=== PATIENT | female | born 1965 | race Caucasian/White ===

== ENCOUNTER 2024-10-26 14:47 | Observation (INO) | payer BC ==
[2024-10-26 17:09] LABS: VENOUS O2 SATURATION 59.7 % (70-80); VENOUS PCO2 47.5 mmHg (38-52); VENOUS PH 7.433 (7.310-7.410)
[2024-10-26 17:10] LABS: ABSOLUTE IMMATURE GRANULOCYTES 0.01 x10^3/uL (0.0-0.031); BASOPHILS # 0.03 x10^3/uL (0.01-0.08); EOSINOPHIL % 1.5 % (0.7-5.8); EOSINOPHILS # 0.09 x10^3/uL (0.04-0.36); HEMATOCRIT 27.4 % (34.1-44.9); HEMOGLOBIN 8.9 g/dL (11.2-15.7); MCHC 32.5 g/dl (32.2-35.5); MONOCYTE # 0.44 x10^3/uL (0.24-0.86); MONOCYTE % 7.2 % (4.7-12.5); PLATELET COUNT 230 x10^3/uL (182-369); RDW 16.4 % (12.3-16.6)
[2024-10-26 17:21] LABS: INR 0.91 (0.83-1.09); PROTHROMBIN TIME (PATIENT) 9.9 SEC (9.7-13.0)
[2024-10-26 17:24] LABS: ACTIVATED PTT 19.2 SECONDS (25.2-36.5)
[2024-10-26 17:33] LABS: POTASSIUM 3.8 mmol/L (3.5-5.1)
[2024-10-26 17:35] LABS: ALBUMIN 2.8 g/dl (3.4-5.0); CALCIUM 8.9 mg/dL (8.5-10.1)
[2024-10-26 17:38] LABS: CREATININE 1.4 mg/dL (0.55-1.3)
[2024-10-26 17:40] LABS: BILIRUBIN,TOTAL 0.4 mg/dL (0.2-1); TOT PROT 6.2 g/dl (6.4-8.2)
[2024-10-26 18:39] LABS: PH,URINE 5.5 (5.0-8.0); URINE APPEARANCE TURBID; URINE BILIRUBIN 1+ (NEGATIVE); URINE COLOR DK YELLOW; URINE GLUCOSE (UA) 1+ (NEGATIVE); URINE KETONE TRACE (NEGATIVE); URINE LEUK ESTERASE TRACE (NEGATIVE); URINE NITRITE NEGATIVE (NEGATIVE); URINE PROTEIN 4+ (NEGATIVE); URINE UROBILINOGEN 0.2 mg/dL (0.2-1.0)
[2024-10-26 20:03] LABS: EPI CELLS 85.5 /uL (0-25.1); URINE RBC 29.7 /uL (0-23.9); URINE WBC 805.5 /uL (0-25.8)
[2024-10-26 20:04] LABS: HYALINE CASTS 3.17 /uL (0-3.1); URINE BACTERIA 119.3 /uL (0-1359)
[2024-10-26] MEDS ORDERED: levETIRAcetam 500 MG/5 ML INJECTION VIAL IVPB ONE (20:51)
[2024-10-26] MEDS: levETIRAcetam 500 MG/5 ML INJECTION VIAL IVPB ONE (20:57)
[2024-10-26] MEDS ORDERED: levETIRAcetam 500 MG/5 ML ORAL SOLUTION (UNIT-DOSE CUPS) GT SCH (22:00)
[2024-10-26] MEDS ORDERED: levETIRAcetam 500 MG/5 ML INJECTION VIAL IVPB SCH (22:00)
[2024-10-26] MEDS ORDERED: traZODone HCL 50 MG TABLET (FP) ONE (22:49)
[2024-10-26] MEDS ORDERED: ATORVASTATIN CA 80 MG TABLET (FP) ONE (22:49)
[2024-10-26] MEDS ORDERED: HEPARIN NA (PORCINE) 5,000 UNITS/ML 1ML VIAL ONE (22:50)
[2024-10-26] MEDS ORDERED: MIDODRINE HCL 5 MG TABLET ONE (22:50)
[2024-10-26] MEDS ORDERED: Lacosamide 50 MG/5 ML ORAL SOLUTION UNIT CUPS ONE (22:50)
[2024-10-26] MEDS: traZODone HCL 50 MG TABLET (FP) PO SCH (23:25)
[2024-10-26] MEDS: HEPARIN NA (PORCINE) 5,000 UNITS/ML 1ML VIAL SQ SCH (23:25)
[2024-10-26] MEDS: ATORVASTATIN CA 80 MG TABLET (FP) GT SCH (23:25)
[2024-10-26] MEDS: Lacosamide 50 MG/5 ML ORAL SOLUTION UNIT CUPS PO SCH (23:25)
[2024-10-26] MEDS: MIDODRINE HCL 5 MG TABLET GT SCH (23:30)
[2024-10-27] MEDS: INSULIN ASPART SLIDING SCALE (NOVOLOG) 1 VIAL SQ SCH (06:19)
[2024-10-27 07:00] LABS: ABSOLUTE IMMATURE GRANULOCYTES 0.02 x10^3/uL (0.0-0.031); BASOPHILS # 0.04 x10^3/uL (0.01-0.08); EOSINOPHIL % 3.3 % (0.7-5.8); EOSINOPHILS # 0.19 x10^3/uL (0.04-0.36); HEMATOCRIT 27.7 % (34.1-44.9); HEMOGLOBIN 8.7 g/dL (11.2-15.7); MCHC 31.4 g/dl (32.2-35.5); MEAN CELL VOLUME 101.5 fl (79.4-94.8); MEAN PLT VOLUME 9.8 fl (9.4-12.3); MONOCYTE # 0.45 x10^3/uL (0.24-0.86); MONOCYTE % 7.8 % (4.7-12.5); PLATELET COUNT 258 x10^3/uL (182-369); RDW 16.4 % (12.3-16.6)
[2024-10-27 07:16] LABS: POTASSIUM 3.2 mmol/L (3.5-5.1)
[2024-10-27 07:21] LABS: ALBUMIN 2.8 g/dl (3.4-5.0); BLOOD UREA NITROGEN 29.5 mg/dL (7-18); CALCIUM 8.7 mg/dL (8.5-10.1)
[2024-10-27 07:24] LABS: CREATININE 1.8 mg/dL (0.55-1.3)
[2024-10-27 07:25] LABS: BILIRUBIN,TOTAL 0.4 mg/dL (0.2-1)
[2024-10-27 07:26] LABS: TOT PROT 5.8 g/dl (6.4-8.2)
[2024-10-27] MEDS: ASPIRIN 325 MG TABLET GT ONE (08:00)
[2024-10-27] MEDS ORDERED: MIDODRINE HCL 2.5 MG TABLET PO PRN (08:26)
[2024-10-27] MEDS: KCL 10 MEQ IVPB 10 MEQ/100 ML INFUS.BAG IVPB SCH (10:45)
[2024-10-27] MEDS: levETIRAcetam 500 MG/5 ML INJECTION VIAL IVPB SCH (10:51)
[2024-10-27] MEDS: clonazePAM 0.5 MG TABLET GT SCH (10:51)
[2024-10-27] MEDS: POTASSIUM CHLORIDE ORAL LIQUID 20 MEQ/15 ML GT ONE (18:59)
[2024-10-28 07:05] LABS: HEMATOCRIT 27.8 % (34.1-44.9); HEMOGLOBIN 8.7 g/dL (11.2-15.7); MCHC 31.3 g/dl (32.2-35.5); MEAN CELL VOLUME 101.8 fl (79.4-94.8); MEAN PLT VOLUME 10.7 fl (9.4-12.3); PLATELET COUNT 256 x10^3/uL (182-369); RDW 16.1 % (12.3-16.6)
[2024-10-28 07:30] LABS: CALCIUM 8.5 mg/dL (8.5-10.1)
[2024-10-28 07:31] LABS: BLOOD UREA NITROGEN 39.4 mg/dL (7-18); MAGNESIUM 2.5 mg/dL (1.8-2.4)
[2024-10-28 07:34] LABS: PHOSPHOROUS 4.1 mg/dL (2.5-4.9)
[2024-10-28] MEDS ORDERED: ACETAMINOPHEN 325 MG TABLET (FP) PO PRN (09:29)
[2024-10-28] MEDS: VITAMIN B COMP W-C 1 EA TABLET (NEPHRO-VITE) PO SCH (10:17)
[2024-10-28] MEDS: ASPIRIN 81 MG CHEWABLE TABLETS GT SCH (10:17)
[2024-10-28] MEDS: ACETAMINOPHEN 650 MG/20.3 ML ORAL SOLUTION (CUPS) PEG PRN (10:20)
[2024-10-28] MEDS ORDERED: SIMETHICONE 80 MG TAB.CHEW (FP) PO PRN (15:52)
[2024-10-29 07:18] LABS: HEMATOCRIT 28.6 % (34.1-44.9); HEMOGLOBIN 8.9 g/dL (11.2-15.7); MCHC 31.1 g/dl (32.2-35.5); MEAN CELL VOLUME 101.8 fl (79.4-94.8); MEAN PLT VOLUME 9.8 fl (9.4-12.3); PLATELET COUNT 364 x10^3/uL (182-369); RDW 16.2 % (12.3-16.6)
[2024-10-29] MEDS: SODIUM CHLORIDE 250 ML IV PRN (08:45)
[2024-10-29 09:22] LABS: CALCIUM 9.3 mg/dL (8.5-10.1)
[2024-10-29 09:23] LABS: ALBUMIN 2.8 g/dl (3.4-5.0); BLOOD UREA NITROGEN 49.4 mg/dL (7-18)
[2024-10-29 09:26] LABS: CREATININE 2.5 mg/dL (0.55-1.3)
[2024-10-29 09:28] LABS: BILIRUBIN,TOTAL 0.2 mg/dL (0.2-1); TOT PROT 6.2 g/dl (6.4-8.2)
[2024-10-29 10:54] LABS: HEPATITIS B SURF AG NON-MATERN NON-REACTIVE (NONREACTIVE)
[2024-10-29] MEDS: EPOETIN ALFA-EPBX 10,000 UNIT/ML VIAL SQ ONE (11:02)
[2024-10-29] MEDS: ALBUMIN HUMAN 25% 12.5 GM/50 ML VIAL IV SCH (11:05)
[2024-10-29 11:23] LABS: HCV DIAGNOSTIC IN-HOUSE W/RFLX NON-REACTIVE (NONREACTIVE)
[2024-10-30 07:18] LABS: POTASSIUM 3.4 mmol/L (3.5-5.1)
[2024-10-30 07:21] LABS: ALBUMIN 2.8 g/dl (3.4-5.0); BLOOD UREA NITROGEN 28.4 mg/dL (7-18); CALCIUM 8.7 mg/dL (8.5-10.1)
[2024-10-30 07:25] LABS: CREATININE 1.9 mg/dL (0.55-1.3)
[2024-10-30 07:26] LABS: BILIRUBIN,TOTAL 0.3 mg/dL (0.2-1)
[2024-10-30] MEDS: ALBUTEROL SO4 2.5/IPRATROPIUM 0.5 INH SOL 3 ML VIAL.NEB. NEB SCH (11:31)
[2024-10-30] MEDS: FUROSEMIDE 40 MG TABLET (FP) PO ONE (11:35)
[2024-10-31 07:54] LABS: HEMATOCRIT 30.1 % (34.1-44.9); HEMOGLOBIN 9.2 g/dL (11.2-15.7); MCHC 30.6 g/dl (32.2-35.5); MEAN CELL VOLUME 103.1 fl (79.4-94.8); MEAN PLT VOLUME 10.4 fl (9.4-12.3); PLATELET COUNT 354 x10^3/uL (182-369)
[2024-10-31 08:05] LABS: BLOOD UREA NITROGEN 45.7 mg/dL (7-18); CALCIUM 8.8 mg/dL (8.5-10.1)
[2024-10-31 08:06] LABS: MAGNESIUM 2.6 mg/dL (1.8-2.4)
[2024-10-31 08:09] LABS: CREATININE 2.4 mg/dL (0.55-1.3)
[2024-10-31] MEDS ORDERED: SODIUM CHLORIDE 250 ML IV PRN (08:25)
[2024-10-31] MEDS: EPOETIN ALFA-EPBX 10,000 UNIT/ML VIAL SQ ONE (09:44)
[2024-10-31 12:57] VITALS: BMI 35.0
[2024-10-31] MEDS: LORazepam 1 MG TABLET GT SCH (21:54)
[2024-11-01 07:35] LABS: POTASSIUM 3.5 mmol/L (3.5-5.1)
[2024-11-01 07:36] LABS: CALCIUM 9.3 mg/dL (8.5-10.1)
[2024-11-01 07:37] LABS: ALBUMIN 2.9 g/dl (3.4-5.0)
[2024-11-01 07:41] LABS: BILIRUBIN,TOTAL 0.4 mg/dL (0.2-1)
[2024-11-01 07:42] LABS: TOT PROT 6.4 g/dl (6.4-8.2)
[2024-11-01 08:52] LABS: HEMATOCRIT 30.8 % (34.1-44.9); HEMOGLOBIN 9.5 g/dL (11.2-15.7); MCHC 30.8 g/dl (32.2-35.5); MEAN CELL VOLUME 102.7 fl (79.4-94.8); PLATELET COUNT 400 x10^3/uL (182-369); RDW 15.9 % (12.3-16.6)
[2024-11-01] MEDS ORDERED: SODIUM CHLORIDE 250 ML IV PRN (09:50)
[2024-11-01] MEDS ORDERED: ESCITALOPRAM OXALATE 5 MG/5 ML GT SCH ×2 (10:29→11:00)
[2024-11-01] MEDS: LORazepam 1 MG TABLET GT SCH (10:31)
[2024-11-01] MEDS: ESCITALOPRAM OXALATE 5 MG/5 ML GT ONE (11:03)
[2024-11-01 11:24] VITALS: BP 146/57; PULSE 79; RESP 19; TEMP 98.8
[2024-11-02] MEDS ORDERED: EPOETIN ALFA-EPBX 10,000 UNIT/ML VIAL IVPUSH ONE (09:50)
[2024-11-02] MEDS ORDERED: ESCITALOPRAM OXALATE 10 MG TABLET PO SCH (10:00)
== END 2024-11-01 11:25 ==
LOC: JER 14:47 → INTOOBSV 20:04 → JERBED 20:04 → J4W 10-27 00:28
PROVIDERS: ADMIT Internal Medicine; ATTEND Internal Medicine
PROC: 3E023GC Introduction of Other Therapeutic Substance into Muscle, Percutaneous Approach (ICD-10-PCS; principal; 2024-10-26)
PROC: 3E033GC Introduction of Other Therapeutic Substance into Peripheral Vein, Percutaneous Approach (ICD-10-PCS; 2024-10-26)
PROC: 3E033GC Introduction of Other Therapeutic Substance into Peripheral Vein, Percutaneous Approach (ICD-10-PCS; 2024-10-26)
PROC: 3E0337Z Introduction of Electrolytic and Water Balance Substance into Peripheral Vein, Percutaneous Approach (ICD-10-PCS; 2024-10-26)
DX: R07.89 Other chest pain (principal); G20.A1 Parkinson's disease without dyskinesia, without mention of fluctuations; I13.11 Hypertensive heart and chronic kidney disease without heart failure, with stage 5 chronic kidney disease, or end stage renal disease; N18.6 End stage renal disease; Z99.2 Dependence on renal dialysis; E11.9 Type 2 diabetes mellitus without complications; G40.909 Epilepsy, unspecified, not intractable, without status epilepticus; I25.2 Old myocardial infarction; E78.5 Hyperlipidemia, unspecified; D64.9 Anemia, unspecified; Z93.0 Tracheostomy status; Z93.1 Gastrostomy status; R45.851 Suicidal ideations
CPT/HCPCS: 0241U-QW; 36415; 71045-TC-FY; 73130-TC-RT-FY; 80048; 80053; 81003; 82803; 82962; 83036; 83605; 83735; 84100; 84484; 85025; 85027; 85610; 85730; 86704; 86803; 87040; 87086; 87340; 87517; 93005; 93010; 93970-TC; 94640; 97161-GP; 99285-25; G0378; J1644; Q5106